=== PATIENT | male | born 1990 | race Caucasian/White ===

== ENCOUNTER 2016-08-29 08:15 | Emergency (ER) | payer BC ==
[2016-08-29 08:34] VITALS: BP 139/79
--- NOTE | 2016-08-29 09:10 | UC ---
Lower Extremity/Ankle HPI - HPI Summary HPI Summary: right foot and lateral ankle pain (anterior talofibular area) - History of Current Complaint Chief Complaint: UCLowerExtremity Stated Complaint: RIGHT ANKLE/FOOT PAIN Time Seen by Provider: 08/29/16 08:54 Hx Obtained From: Patient Onset/Duration: Sudden Onset, Lasting Days, Still Present Severity Initially: Moderate Severity Currently: Moderate Pain Intensity: 4 Pain Scale Used: 0-10 Numeric Aggravating Factor(s): Ambulation Alleviating Factor(s): Rest, OTC Meds Able to Bear Weight: Yes - with pain - Allergies/Home Medications Allergies/Adverse Reactions: Allergies Allergy/AdvReac Type Severity Reaction Status Date / Time No Known Allergies Allergy Verified 08/29/16 08:34 Home Medications: Home Medications NK [No Home Medications Reported] 08/29/16 [History Confirmed 08/29/16] PMH/Surg Hx/FS Hx/Imm Hx Previously Healthy: Yes - Surgical History Surgical History: Yes Surgery Procedure, Year, and Place: right rotator cuff 2017 - Family History Known Family History: Positive: None - Social History Occupation: Employed Full-time Lives: With Family Alcohol Use: Daily Alcohol Amount: 1-2 beers Substance Use Type: Marijuana Smoking Status (MU): Never Smoked Tobacco Review of Systems Constitutional: Negative Skin: Negative Eyes: Negative ENT: Negative Respiratory: Negative Cardiovascular: Negative Gastrointestinal: Negative Genitourinary: Negative Motor: Negative Neurovascular: Negative Musculoskeletal: Negative - foot, Arthralgia Neurological: Negative Psychological: Negative All Other Systems Reviewed And Are Negative: Yes Physical Exam Triage Information Reviewed: Yes Appearance: Well-Appearing, No Pain Distress, Well-Nourished Vital Signs: Initial Vital Signs Temp 98 F 08/29/16 08:29 Pulse 72 08/29/16 08:29 Resp 17 08/29/16 08:29 BP 139/79 08/29/16 08:29 Pulse Ox 99 08/29/16 08:29 Vital Signs Reviewed: Yes Eye Exam: Normal Eyes: Positive: Conjunctiva Clear ENT Exam: Normal ENT: Positive: Normal ENT inspection, Hearing grossly normal, Pharynx normal, TMs normal. Negative: Nasal congestion, Nasal drainage, Tonsillar swelling, Tonsillar exudate, Trismus, Muffled/hoarse voice Dental Exam: Normal Neck exam: Normal Neck: Positive: Supple, Nontender, No Lymphadenopathy Respiratory Exam: Normal Respiratory: Positive: Chest non-tender, No respiratory distress, No accessory muscle use Cardiovascular Exam: Normal Cardiovascular: Positive: RRR, Pulses Normal, Brisk Capillary Refill Musculoskeletal Exam: Normal Musculoskeletal: Positive: Strength Intact, ROM Intact, Edema @ - lateral right ankle Neurological Exam: Normal Neurological: Positive: Alert, Muscle Tone Normal Psychological Exam: Normal Skin Exam: Normal Diagnostics - Radiology No standard instances Xray Interpretation: No Acute Changes Radiology Interpretation Completed By: Radiologist Lower Extremity Course/Dx - Course Course Of Treatment: post op shoe, radha wrap, rice follow with ortho if fails to resolve - Differential Dx/Diagnosis Differential Diagnosis/HQI/PQRI: Contusion, Fracture (Closed), Sprain, Strain Provider Diagnoses: Right foot strain Discharge - Discharge Plan Condition: Stable Disposition: HOME Patient Education Materials: Ankle Strain (ED), RICE Therapy (ED), Ibuprofen ( By mouth)
--- NOTE | 2016-08-29 09:22 | RAD ---
Indication: RIGHT foot pain starting last night medial aspect at level of first metatarsal. No preceding injury. Comparison: None. Technique: AP, lateral, and oblique views RIGHT foot. Report: Normal articular alignment. Preserved joint spaces. Negative for fracture or stigmata of stress reaction. Unremarkable soft tissue contours. IMPRESSION: Negative exam.
== END 2016-08-29 09:39 | disposition home or self-care (01) ==
LOC: UCCORT 08:15
DX: S96.811A Strain of other specified muscles and tendons at ankle and foot level, right foot, initial encounter (principal); X58.XXXA Exposure to other specified factors, initial encounter
CPT/HCPCS: 99203; G0463